=== PATIENT | female | born 1945 | race Caucasian/White ===

== ENCOUNTER 2017-04-27 10:01 | Day surgery (SDC) | payer OTHER, MEDICARE ==
[2017-04-26 10:22] VITALS: BMI 22.4
[2017-04-27 12:12] VITALS: TEMP 98.1
[2017-04-27 13:21] VITALS: BP 139/56; PULSE 60
--- NOTE | 2017-04-30 12:44 | PATH ---
Surgical Pathology Report Patient Name: AKIL MARLEY [facility]. Rec. #: [id number] /Age/Gender: 1945 (Age: 71) / F Account: [id number] Location: [facility]-ENDOSCOPY Taken: 04/27/2017 Received: 04/27/2017 Reported: 04/30/2017 Physicians: Benoit Healy M.D. Specimen(s) Received A: BX POLYPS PROXIMAL TRANSVERSE COLON B: BX POLYP RIGHT COLON C: BX POLYP DESCENDING COLON Clinical History Colon screening Colon polyps Final Diagnosis A. COLON, PROXIMAL TRANSVERSE, POLYP, BIOPSY: POLYPOID FRAGMENTS OF COLONIC MUCOSA PROMINENT SUBMUCOSAL REACTIVE LYMPHOID AGGREGATES AND FEATURES SUGGESTIVE OF POSTINFLAMMATORY-TYPE POLYPS. B. COLON, RECTUM POLYP, BIOPSY: CONSISTENT WITH INFLAMMATORY/POSTINFLAMMATORY TYPE POLYP. C. COLON, DESCENDING, POLYP, BIOPSY: TUBULAR ADENOMA. Electronically Signed Sai Linares M.D. Gross Description A. Received in formalin, labeled "polyps proximal transverse colon" are 3 vásquez, irregular portions of soft tissue ranging from 0.1-0.4 cm in greatest dimension. The specimens are submitted in toto in one cassette. B. Received in formalin, labeled "biopsy polyp right colon" is a vásquez, irregular portion of soft tissue measuring 0.5 cm in greatest dimension. The specimen is submitted in toto in one cassette. C. Received in formalin, labeled "biopsy polyp descending colon" is a vásquez, irregular portion of soft tissue measuring 0.4 cm in greatest dimension. The specimen is submitted in toto in one cassette. /04/27/201704/27/2017
== END 2017-04-27 13:31 | disposition home or self-care (01) ==
LOC: JASU-ENDO 10:01
PROVIDERS: ATTEND Internal Medicine Gastroenterology
PROC: 0DBL8ZX Excision of Transverse Colon, Via Natural or Artificial Opening Endoscopic, Diagnostic (ICD-10-PCS; 2017-04-27)
PROC: 0DBM8ZX Excision of Descending Colon, Via Natural or Artificial Opening Endoscopic, Diagnostic (ICD-10-PCS; 2017-04-27)
PROC: 0DBK8ZX Excision of Ascending Colon, Via Natural or Artificial Opening Endoscopic, Diagnostic (ICD-10-PCS; principal; 2017-04-27 11:00)
DX: Z12.11 Encounter for screening for malignant neoplasm of colon (principal); D12.2 Benign neoplasm of ascending colon; D12.4 Benign neoplasm of descending colon; D12.5 Benign neoplasm of sigmoid colon; K57.30 Diverticulosis of large intestine without perforation or abscess without bleeding; I10 Essential (primary) hypertension; E78.5 Hyperlipidemia, unspecified; J45.909 Unspecified asthma, uncomplicated; F41.9 Anxiety disorder, unspecified; M81.0 Age-related osteoporosis without current pathological fracture
CPT/HCPCS: 88305-TC

== ENCOUNTER 2022-03-03 04:18 | Day surgery (SDC) | payer OTHER, MEDICARE ==
[2022-02-28 12:30] VITALS: BMI 24.1
[2022-03-03 13:08] VITALS: BP 142/49; PULSE 60; TEMP 98
== END 2022-03-03 13:05 | disposition home or self-care (01) ==
LOC: JASU-ENDO 04:18
PROVIDERS: ATTEND Internal Medicine Gastroenterology
PROC: 0DBK8ZX Excision of Ascending Colon, Via Natural or Artificial Opening Endoscopic, Diagnostic (ICD-10-PCS; principal; 2022-03-03 11:00)
DX: Z12.11 Encounter for screening for malignant neoplasm of colon (principal); D12.2 Benign neoplasm of ascending colon; K57.30 Diverticulosis of large intestine without perforation or abscess without bleeding; Z86.010 Personal history of colon polyps
CPT/HCPCS: 88305-TC